=== PATIENT | female | born 1955 | race American Indian/Alaskan Native ===

== ENCOUNTER 2017-12-23 08:40 | Outpatient (CLI) | payer BC ==
--- NOTE | 2017-12-23 10:33 | Mammography Report ---
Bilateral mammogram: No previous studies are available. CAD study utilized. Findings: Predominance of adipose tissue bilaterally. Benign scattered calcifications. Benign axillary nodes. No microcalcification. Impression: Benign findings. Annual followup recommended. BI-RADS CATEGORY: 2 = Benign ACR BI-RADS MAMMOGRAPHIC CODES: 0 = Needs additional imaging evaluation; 1 = Negative; 2 = Benign; 3 = Probably benign; 4 = Suspicious; 5 = Malignant; 6 = Known biopsy-proven malignancy COMMENT: 1. Dense breast tissue, i.e., adenosis, fibrocystic changes, etc., may obscure an underlying neoplasm. 2. Approximately 10% of cancers are not detected with mammography. 3. A negative mammography report should not delay biopsy if a clinically suspicious mass is present. COMMENT: Patient follow-up letters are generated in [employer].
== END 2017-12-23 08:41 | disposition home or self-care (01) ==
LOC: MAMMO 08:40
PROVIDERS: ATTEND Internal Medicine
DX: Z12.31 Encounter for screening mammogram for malignant neoplasm of breast (principal)
CPT/HCPCS: 77067

== ENCOUNTER 2019-04-17 00:40 | Emergency (ER) | payer BC ==
[2019-04-17 01:48] LABS: Basophils % (Auto) 0.6 % (0.0-1.8); Eosinophils # (Auto) 0.2 K/mm3 (0.0-0.4); Eosinophils % (Auto) 2.3 % (0.0-4.3); Hematocrit 27.7 % (30.3-42.9); Hemoglobin 9.4 gm/dl (10.1-14.3); Lymphocytes # (Auto) 1.5 K/mm3 (1.2-5.4); Mean Corpuscular HGB Conc 34 % (30-34); Mean Corpuscular Volume 86 fl (79-97); Monocytes # (Auto) 0.7 K/mm3 (0.0-0.8); Platelet Count 323 K/mm3 (140-440); Red Cell Distribution Width 16.2 % (13.2-15.2)
[2019-04-17 02:14] LABS: Albumin 4.5 g/dL (3.9-5); Calcium 9.5 mg/dL (8.4-10.2)
[2019-04-17 03:24] LABS: Chol/HDL Ratio 3.03 %
--- NOTE | 2019-04-17 05:34 | Event Note ---
ED Screening Note Date of service: 04/17/19 Time: 05:00 ED Screening Note: 64-year-old female presents the ED following a syncopal episode. Patient reports history of multiple previous episodes of syncope in the past. Patient states she has been seen by cardiology, however no cause identified. Patient reports feeling dizzy and lightheaded, nauseated, and sensation of having to have a bowel movement prior to passing out. Denies chest pain or shortness of breath. Patient is comfortable. Vitals are stable. Awaiting oncoming physician. This initial assessment/diagnostic orders/clinical plan/treatment(s) is/are subject to change based on patients health status, clinical progression and re- assessment by fellow clinical providers in the ED. Further treatment and workup at subsequent clinical providers discretion. Patient/guardian urged not to elope from the ED as their condition may be serious if not clinically assessed and managed. Initial orders include:
--- NOTE | 2019-04-17 06:39 | Emergency Department Report ---
HPI - General Chief Complaint: Syncope Time Seen by Provider: 04/17/19 06:09 - HPI HPI: 64-year-old -[place] female, who is an employee at this hospital, presents to the emergency department after she passed out while on her way to the ladies room just prior to presentation to the emergency department. The patient was getting off of the elevator on her way to the bathroom and apparently was seen by another nurse "falling down." The patient thought she had tripped but was told that she did not, she does appear to pass out. The patient did state that she was feeling slightly lightheaded prior to going to the restroom. At the time of my examination the patient is awake, alert, oriented and says that she "feels fine." Apparently the patient has some episodes where she starts "feeling hot and cold, having some tunnel vision" and this has been going on for years. She has a past medical history of diabetes and hypertension. Patient denies any known chronic kidney disease but the records show that the patient does appear to have some history of chronic kidney disease and the patient says that she previously had seen a carbider. Otherwise she follows up with her primary care physician, Dr. Alden Ge. ED Past Medical Hx - Past Medical History Previous Medical History?: Yes Hx Hypertension: Yes Hx Diabetes: Yes - Surgical History Past Surgical History?: No Additional Surgical History: x1 - Social History Smoking Status: Never Smoker ED Review of Systems ROS: Stated complaint: PASSED OUT Other details as noted in HPI Comment: All other systems reviewed and negative Constitutional: denies: chills, fever Eyes: denies: eye pain, vision change ENT: denies: ear pain, throat pain Respiratory: denies: cough, shortness of breath Cardiovascular: syncope. denies: chest pain Gastrointestinal: denies: abdominal pain, vomiting Genitourinary: denies: dysuria, discharge Musculoskeletal: denies: back pain, arthralgia Skin: denies: rash, lesions Neurological: other (lightheaded, dizzy). denies: headache Physical Exam - Physical Exam Vital Signs: Vital Signs 04/17/19 01:08 Temperature 98 F Pulse Rate 59 L Respiratory 14 Rate Blood Pressure 135/67 [Left] O2 Sat by Pulse 100 Oximetry Physical Exam: GENERAL: The patient is well-developed well-nourished. HENT: Normocephalic. Atraumatic. Patient has moist mucous membranes. EYES: Extraocular motions are intact. Pupils equal reactive to light bilaterally. No nystagmus. NECK: Supple. Trachea is midline. CHEST/LUNGS: Clear to auscultation. There is no respiratory distress noted. HEART/CARDIOVASCULAR: Regular. There is no tachycardia. ABDOMEN: Abdomen is soft, nontender. There is no abdominal distention. SKIN: Skin is warm and dry. NEURO: The patient is awake, alert, and oriented. The patient is cooperative. The patient has no focal neurologic deficits. Normal speech. Cranial nerves II through XII grossly intact. No pronator drift. No dysmetria. MUSCULOSKELETAL: There is no tenderness or deformity. There is no limitation range of motion. There is no evidence of acute injury. ED Course Vital Signs 04/17/19 01:08 Temperature 98 F Pulse Rate 59 L Respiratory 14 Rate Blood Pressure 135/67 [Left] O2 Sat by Pulse 100 Oximetry ED Medical Decision Making - Lab Data Result diagrams: 04/17/19 01:17 04/17/19 01:17 - EKG Data -: EKG Interpreted by Id EKG shows normal: sinus rhythm, axis (left axis deviation), intervals, QRS complexes (LVH), ST-T waves Rate: normal - EKG Data When compared to previous EKG there are: previous EKG unavailable Interpretation: LVH - Radiology Data Radiology results: report reviewed CT HEAD WITHOUT CONTRAST INDICATION / CLINICAL INFORMATION: Syncope, dizziness. TECHNIQUE: All CT scans at this location are performed using CT dose reduction for ALARA by means of automated exposure control. COMPARISON: Head CT 02/18/2018 FINDINGS: HEMORRHAGE: No evidence of intracranial hemorrhage or extra-axial f luid collection. EXTRA-AXIAL SPACES: Cortical sulci, sylvian fissures and basilar cisterns have an unremarkable appearance. VENTRICULAR SYSTEM: The ventricular system is of normal size and configuration. CEREBRAL PARENCHYMA: No areas of abnormal brain parenchymal attenuation are identified. There is no indication of recent infarction. MIDLINE SHIFT OR HERNIATION: There is no mass effect. CEREBELLUM / BRAINSTEM: An area of decreased attenuation in the left cerebellar hemisphere represents the sequelae of remote cerebellar infarction in a watershed distribution. This is unchanged compared to head CT 02/18/2018. Mild cerebellar atrophy is noted. Brainstem has an unremarkable appearance. INTRACRANIAL VESSELS:No abnormalities are identified on this noncontrast head CT. ORBITS: visualized portions of the orbits have an unremarkable appearance. SOFT TISSUES of HEAD: No significant abnormality. CALVARIUM: A 7 mm diameter calcification along the inner table of the right parietal bone near the vertex may represent bland dural calcification. A similar finding is seen adjacent to the left side of the superior sagittal sinus on the inner table of the left parietal bone. This is also unchanged. PARANASAL SINUSES / MASTOID AIR CELLS: Paranasal sinuses are free from inflammatory mucosal disease. Mastoid air cells are normally pneumatized. IMPRESSION: 1. Remote infarction left cerebellar hemisphere. 2. Otherwise negative head CT without contrast. Findings are stable in comparison to previous study. - Medical Decision Making This patient presented to the emergency department last night after she had a syncopal episode. The patient was seen in the emergency department and her work-up was started prior to my shift starting this morning. However, since my initial evaluation of this patient she has been awake, alert, oriented and without any current complaints. An EKG was done that does not show any signs of ST elevation PA or significant dysrhythmia. Patient's labs were mostly unremarkable except for some anemia with a hemoglobin of 9.4 and some renal insufficiency that appears consistent with chronic kidney disease. The patient last had blood work done at this facility in late 2018. At that time she had hemoglobin of about 10 and she had a GFR of 18. The GFR is currently at 12. The patient did have a slightly elevated troponin level of 0.041 that trended down to 0.035. She had no complaints of any chest pain, shortness of breath and the elevated troponin levels are most likely secondary to her chronic kidney disease. The rest the patient's labs were unremarkable including her electrolytes, thyroid function, and ammonia level. A CT scan of the head without contrast was done that does not show any acute bleed, shift, mass, ischemia, or any other acute process. Prior to discharge the patient was seen ambulatory around the entire emergency department without any signs of instability and the patient denies any dizziness. There was no increased work of breathing or return of symptoms. The patient has been reevaluated multiple times over more than 8 hours and says that she feels well. She has good outpatient follow-up with primary care and she has been given a referral to nephrology. The patient will return to the emergency department with any further episodes of passing out, worsening of her symptoms, or with any acute distress. All questions were answered and the patient understands and agrees to the plan. - Differential Diagnosis TIA, orthostatic hypotension, vasovagal, hypoglycemia Critical Care Time: No Critical care attestation.: If time is entered above; I have spent that time in minutes in the direct care of this critically ill patient, excluding procedure time. ED Disposition Clinical Impression: Syncope Qualifiers: Syncope type: unspecified Qualified Code(s): R55 - Syncope and collapse CKD (chronic kidney disease) Qualifiers: Chronic kidney disease stage: unspecified stage Qualified Code(s): N18.9 - Chronic kidney disease, unspecified Hypertension Qualifiers: Hypertension type: essential hypertension Qualified Code(s): I10 - Essential (primary) hypertension Disposition: TO HOME OR SELFCARE Is pt being admited?: No Condition: Stable Instructions: Chronic Kidney Disease (ED), Syncope (ED), Hypertension (ED) Additional Instructions: Please follow-up with Dr. Ge in the next few days without fail. I have also given you a referral for a local carbider, Dr. ibarra, to follow-up regarding your chronic kidney disease. Please call for EMS or return to the emergency department immediately with any further episodes of passing out, development of chest pain or shortness of breath, any neurological deficits, or with any acute distress. Please try and stay away from foods that are high in salt and caffeinated produc ts to help with your blood pressure. Keep a blood pressure log. Due to your chronic kidney disease, please avoid any NSAIDS / anti- inflammatories such as Aleve, Advil, ibuprofen, naproxen. Referrals: ALDEN GE MD [Staff Physician] - 2-3 Days ÁNGEL EASON MD [Staff Physician] - 2-3 Days Time of Disposition: 09:33
[2019-04-17 07:55] VITALS: BP 162/72
--- NOTE | 2019-04-17 07:58 | Cat Scan Report ---
CT HEAD WITHOUT CONTRAST INDICATION / CLINICAL INFORMATION: Syncope, dizziness. TECHNIQUE: All CT scans at this location are performed using CT dose reduction for ALARA by means of automated e xposure control. COMPARISON: Head CT 02/18/2018 FINDINGS: HEMORRHAGE: No evidence of intracranial hemorrhage or extra-axial fluid collection. EXTRA-AXIAL SPACES: Cortical sulci, sylvian fissures and basilar cisterns have an unremarkable appear ance. VENTRICULAR SYSTEM: The ventricular system is of normal size and configuration. CEREBRAL PARENCHYMA: No areas of abnormal brain parenchymal attenuation are identified. There is no i ndication of recent infarction. MIDLINE SHIFT OR HERNIATION: There is no mass effect. CEREBELLUM / BRAINSTEM: An area of decreased attenuation in the left cerebellar hemisphere represents the sequelae of remote cerebellar infarction in a watershed distribution. This is unchanged compared to head CT 02/18/2018. Mild cerebellar atrophy is noted. Brainstem has an unremarkable appearance. INTRACRANIAL VESSELS:No abnormalities are identified on this noncontrast head CT. ORBITS: visualized portions of the orbits have an unremarkable appearance. SOFT TISSUES of HEAD: No significant abnormality. CALVARIUM: A 7 mm diameter calcification along the inner table of the right parietal bone near the ve rtex may represent bland dural calcification. A similar finding is seen adjacent to the left side of the superior sagittal sinus on the inner table of the left parietal bone. This is also unchanged. PARANASAL SINUSES / MASTOID AIR CELLS: Paranasal sinuses are free from inflammatory mucosal disease. Mastoid air cells are normally pneumatized. IMPRESSION: 1. Remote infarction left cerebellar hemisphere. 2. Otherwise negative head CT without contrast. Findings are stable in comparison to previous study. Signer Name: Jorge Farrell MD Signed: 04/17/2019 7:54 AM Workstation Name: [id number]
[2019-04-17 09:39] LABS: Bilirubin,Urine Negative (Negative); Blood,Urine Negative (Negative); Color,Urine Straw (Yellow)
== END 2019-04-17 09:47 | disposition home or self-care (01) ==
LOC: ED 00:40
DX: R55 Syncope and collapse (principal); I12.9 Hypertensive chronic kidney disease with stage 1 through stage 4 chronic kidney disease, or unspecified chronic kidney disease; E11.22 Type 2 diabetes mellitus with diabetic chronic kidney disease; N18.9 Chronic kidney disease, unspecified; Z98.890 Other specified postprocedural states
CPT/HCPCS: 36415; 70450; 80053; 80061; 81001; 82140; 84443; 84484; 85025; 93005; 93010; 99284